=== PATIENT | male | born 1980 | race African-American/Black ===

== ENCOUNTER 2025-03-23 00:08 | Emergency (ER) | payer MEDICAID, OTHER ==
[~2025-03-23] VITALS: Ht 190.5 cm; Wt 102.0 kg
--- NOTE | 2025-03-23 00:28 | ED.PDOC ---
History of Present Illness HPI Comments 44-year-old male came to ER due to back pains. Patient has been complaining of lower back pains for the past 4 days, describe a spasms, worse with sudden movements or bending over. 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 Chief Complaint: Back Pains Time Seen by MD: 00:28 Primary Care Provider: DENIES Reviewed Notes: Nurses Notes Allergies: Coded Allergies: Aspirin (Unverified Allergy, Unknown, 05/06/16) Home Meds Active Scripts Cyclobenzaprine Hcl (CYCLOBENZAPRINE HCL) 7.5 Mg Tab, 7.5 MG PO Q6HP PRN, #30 TAB Prov:SANTA CLARK MD 03/23/25 Gabapentin (Once-Daily) (Gabapentin) 300 Mg Tab, 300 MG PO Q6HP PRN, #60 TAB Prov:SANTA CLARK MD 03/23/25 Albuterol Sulfate (Albuterol Sulfate Hfa) 108 Mcg/Act Aer, 108 MCG IN Q6HP PRN, #1 AER 5 Refills Prov:SANTA CLARK MD 03/23/25 Information Source: Patient Mode of Arrival: EMS Severity: Moderate Timing: Hours Duration: Since onset Prehospital treatment: None Past Medical History PAST MEDICAL HISTORY: Asthma Surgical History (Other): Left hip surgery Family History Family History: Reviewed,noncontributory to illness Social History Smoker: Cigarettes Alcohol: Occasionally Drugs: Marijuana Lives In: Home Constitutional: denies: chills, diaphoresis, fatigue, fever, malaise, sweats, weakness, others EENTM: denies: blurred vision, double vision, ear bleeding, ear discharge, ear drainage, ear pain, ear ringing, eye pain, eye redness, hearing loss, mouth pain, mouth swelling, nasal discharge, nose bleeding, nose congestion, nose pain, photophobia, tearing, throat pain, throat swelling, voice changes, others Respiratory: denies: cough, hemoptysis, orthopnea, SOB at rest, shortness of breath, SOB with excertion, stridor, wheezing, others Cardiovascular: denies: chest pain, dizzy spells, diaphoresis, Dyspnea on exert ion, edema, irregular heart beat, left arm pain, lightheadedness, palpitations, PND, syncope, others Gastrointestinal: denies: abdomen distended, abdominal pain, blood streaked bowels, constipated, diarrhea, dysphagia, difficulty swallowing, hematemesis, melena, nausea, poor appetite, poor fluid intake, rectal bleeding, rectal pain, vomiting, others Genitourinary: denies: burning, dysuria, flank pain, frequency, hematuria, incontinence, penile discharge, penile sore, pain, testicle pain, testicle swelling, urgency, others Neurological: denies: dizziness, fainting, headache, left sided numbness, left sided weakness, numbness, paresthesia, pre-existing deficit, right sided numbness, right sided weakness, seizure, speech problems, tingling, tremors, weakness, others Musculoskeletal: reports: back pain; denies: gout, joint pain, joint swelling, muscle pain, muscle stiffness, neck pain, others Integumetry: denies: bruises, change in color, change in hair/nails, dryness, laceration, lesions, lumps, rash, wounds, others Allergic/Immunocompromised: denies: Difficulty Healing, Frequent Infections, Hives, Itching, others Hematologic/Lymphatic: denies: anemia, blood clots, easy bleeding, easy bruising, swollen glands, others Endocrine: denies: excessive hunger, excessive sweating, excessive thirst, excessive urination, flushing, intolerance to cold, intolerance to heat, unexplained weight gain, unexplained weight loss, others Psychiatric: denies: anxiety, bipolar disorder, depression, hopeless, panic disorder, schizophrenia, sleepless, suicidal, others Physical Exam General Appearance: No Apparent Distress, Normal HEENT: Normal ENT Inspection, Pharynx Normal, TMs Normal Neck: Full Range of Motion, Non-Tender, Normal, Normal Inspection Respiratory: Chest Non-Tender, Lungs Clear, No Accessory Muscle Use, No Respiratory Distress, Normal Breath Sounds Cardiovascular: No Edema, No JVD, No Murmur, No Gallop, Normal Peripheral Pulses, Regular Rate/Rhythm Breast Exam: Deferred Gastrointestinal: No Organomegaly, Non Tender, No Pulsatile Mass, Normal Bowel Sounds, Soft Genitalia: Deferred Pelvic: Deferred Rectal: Deferred Extremities: No calf tenderness, Normal capillary refill, Normal inspection, Normal range of motion, Non-tender, No pedal edema Musculoskeletal : Apperance: Normal 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 Was a procedure done?: No Differential Dx Considerations may include: Musculoskeletal pain, lumbosacral strain, degenerative joint disease X-Ray, Labs, Meds, VS Vital Signs Date Time Temp Pulse Resp B/P (MAP) Pulse Ox O2 Delivery O2 Flow Rate FiO2 03/23/25 05:28 75 11 167/98 03/23/25 04:04 18 95 Room Air* 0 21 03/23/25 03:01 81 15 157/85 (109) 94 03/23/25 01:41 83 14 145/85 03/23/25 01:11 90 16 158/95 03/23/25 01:00 97.8 90 16 158/95 (116) 94 97.8 03/23/25 01:00 90 16 94 Room Air* 0 21 03/23/25 00:20 98.4 84 16 156/105 (122) 96 98.4 Current Medications Medications (Trade) Dose Ordered Sig/Denise Route Start Time Stop Time Status Last Admin Hydromorphone HCl (Dilaudid Injection) 1 mg ONCE ONCE IM 03/23/25 00:30 03/23/25 00:31 DC 03/23/25 01:11 Ondansetron HCl (Zofran Po) 8 mg ONCE ONCE PO 03/23/25 00:30 03/23/25 00:31 DC 03/23/25 01:11 Albuterol (Ventolin Medneb) 2.5 mg ONCE ONCE NEB 03/23/25 04:00 03/23/25 04:01 DC 03/23/25 04:03 Ipratropium [place] (Atrovent Medneb) 0.5 mg ONCE ONCE NEB 03/23/25 04:00 03/23/25 04:01 DC 03/23/25 04:04 Ketorolac Tromethamine (Toradol Injection) 30 mg ONCE ONCE IM 03/23/25 04:00 03/23/25 04:01 DC 03/23/25 03:54 Hydromorphone HCl (Dilaudid Injection) 1 mg ONCE ONCE IM 03/23/25 05:30 03/23/25 05:31 DC 03/23/25 05:28 Examination: LS2CT CLINICAL INDICATION: low back pain COMPARISON: None. CONTRAST USED: None. TECHNIQUE: Axial sections through the lumbar spine with sagittal and coronal reformats are obtained without contrast. Multiplanar reconstructions were obtained. CT scan done according to ALARA (As Low As Reasonably Achievable). FINDINGS: The alignment of the lumbosacral spine is maintained. Degenerative changes are seen in the form of multilevel marginal osteophytes. The vertebral bodies and posterior elements are unremarkable. There is no fracture or subluxation. No destructive bony lesion is noted. The pre- and para-vertebral soft tissues are unremarkable. The sacroiliac joints are unremarkable to the extent visualized. The abdominal organs to the extent visualized are unremarkable. T12-L1: Disc height is reduced. There is no significant disc herniation, central canal or neural foraminal narrowing. The facet joints and ligamentum fl avum are within normal limits. L1-L2: Disc height is reduced with vacuum phenomenon. Diffuse disc bulge is seen measuring 4 mm indenting on the ventral thecal sac. There is no significant central canal or neural foraminal narrowing. The facet joints and ligamentum flavum are within normal limits. L2-L3: Disc height is within normal limits. There is no significant disc herniation, central canal or neural foraminal narrowing. The facet joints and ligamentum flavum are within normal limits. L3-L4: Disc height is within normal limits. There is no significant disc herniation, central canal or neural foraminal narrowing. The facet joints and ligamentum flavum are within normal limits. L4-L5: Disc height is within normal limits. There is no significant disc herniation, central canal or neural foraminal narrowing. The facet joints and ligamentum flavum are within normal limits. L5-S1: Disc height is within normal limits. There is no significant disc herniation, central canal or neural foraminal narrowing. The facet joints and ligamentum flavum are within normal limits. IMPRESSION: 1. Degenerative changes in the lumbar spine as described above. 2. No acute fracture or dislocation. Time of 1ST Reevaluation: 00:23 Reevaluation 1ST: Unchanged Patient Education/Counseling: Diagnosis, Treatment Family Education/Counseling: No Family Present Departure 1 Departure Time of Disposition: 02:00 Impression: Primary Impression: DJD (degenerative joint disease), lumbosacral Additional Impressions: Right sided sciatica Asthma Disposition: HOME / SELF CARE / HOMELESS Condition: Stable e-Prescriptions Cyclobenzaprine Hcl (CYCLOBENZAPRINE HCL) 7.5 Mg Tab 7.5 MG PO Q6HP PRN, #30 TAB Prov: SANTA CLARK MD 03/23/25 Gabapentin (Once-Daily) (Gabapentin) 300 Mg Tab 300 MG PO Q6HP PRN, #60 TAB Prov: SANTA CLARK MD 03/23/25 Albuterol Sulfate (Albuterol Sulfate Hfa) 108 Mcg/Act Aer 108 MCG IN Q6HP PRN, #1 AER 5 Refills Prov: SANTA CLARK MD 03/23/25 Discharged With: Self Critical Care Note Critical Care Time?: No Stability Stability form required: No Heart Score Heart Score: Heart Score Response (Comments) Value History N/A 0 EKG N/A 0 Age N/A 0 Risk Factors N/A 0 Troponin N/A 0 Total 0 I personally scribed for SANTA CLARK MD ([email or web address]) on 03/23/25 at 00:28. Electronically submitted by Dylan Cerrato ([email or web address]). I personally scribed for SANTA CLARK MD ([email or web address]) on 03/23/25 at 05:00. Electronically submitted by Dylan Cerrato ([email or web address]). SANTA CLARK MD March 23, 2025 00:28
[2025-03-23 01:00] VITALS: PULSE 90; RESP 16; TEMP 97.8; O2SAT 94
[2025-03-23] MEDS: HYDROmorphone HCL 2 MG/ML VL/or syr IM ONE ×2 (01:11→05:28)
[2025-03-23] MEDS: ONDANSETRON ODT 4 MG TAB PO ONE (01:11)
[2025-03-23] MEDS: KETOROLAC TROMETH 30 MG/ML 1ML VIAL IM ONE (03:54)
[2025-03-23] MEDS: ALBUTEROL SULF 2.5 MG/0.5ML(0.5%) NEB SOLN NEB ONE (04:03)
[2025-03-23 04:04] VITALS: O2SAT 95
[2025-03-23] MEDS: IPRATROPIUM BROM 0.5 MG/2.5ML INH SOL NEB ONE (04:04)
--- NOTE | 2025-03-23 04:52 | DVH ---
Examination: LS2CT CLINICAL INDICATION: low back pain COMPARISON: None. CONTRAST USED: None. TECHNIQUE: Axial sections through the lumbar spine with sagittal and coronal reformats are obtained without contrast. Multiplanar reconstructions were obtained. CT scan done according to ALARA (As Low As Reasonably Achievable). FINDINGS: The alignment of the lumbosacral spine is maintained. Degenerative changes are seen in the form of mu ltilevel marginal osteophytes. The vertebral bodies and posterior elements are unremarkable. There is no fracture or subluxation. No destructive bony lesion is noted. The pre- and para-vertebral soft ti ssues are unremarkable. The sacroiliac joints are unremarkable to the extent visualized. The abdomina l organs to the extent visualized are unremarkable. T12-L1: Disc height is reduced. There is no significant disc herniation, central canal or neural fo raminal narrowing. The facet joints and ligamentum flavum are within normal limits. L1-L2: Disc height is reduced with vacuum phenomenon. Diffuse disc bulge is seen measuring 4 mm inde nting on the ventral thecal sac. There is no significant central canal or neural foraminal narrowing. The facet joints and ligamentum flavum are within normal limits. L2-L3: Disc height is within normal limits. There is no significant disc herniation, central canal o r neural foraminal narrowing. The facet joints and ligamentum flavum are within normal limits. L3-L4: Disc height is within normal limits. There is no significant disc herniation, central canal o r neural foraminal narrowing. The facet joints and ligamentum flavum are within normal limits. L4-L5: Disc height is within normal limits. There is no significant disc herniation, central canal o r neural foraminal narrowing. The facet joints and ligamentum flavum are within normal limits. L5-S1: Disc height is within normal limits. There is no significant disc herniation, central canal o r neural foraminal narrowing. The facet joints and ligamentum flavum are within normal limits. IMPRESSION: 1. Degenerative changes in the lumbar spine as described above. 2. No acute fracture or dislocation. Electronically Signed 03/23/2025 04:51 Rodney Britton
[2025-03-23] MEDS ORDERED: ALBU108A5 IN (05:19)
[2025-03-23] MEDS ORDERED: GABA300T4 PO (05:19)
[2025-03-23] MEDS ORDERED: CYCL-838 PO (05:19)
[2025-03-23 05:28] VITALS: BP 167/98; PULSE 75; RESP 11
== END 2025-03-23 05:53 | disposition home or self-care (01) ==
LOC: EDBD 00:08 → ER 00:08
DX: M47.817 Spondylosis without myelopathy or radiculopathy, lumbosacral region (principal); M54.41 Lumbago with sciatica, right side; J45.909 Unspecified asthma, uncomplicated; F17.210 Nicotine dependence, cigarettes, uncomplicated; F10.90 Alcohol use, unspecified, uncomplicated; Y90.9 Presence of alcohol in blood, level not specified; F19.90 Other psychoactive substance use, unspecified, uncomplicated; Z98.890 Other specified postprocedural states; Z87.09 Personal history of other diseases of the respiratory system; Z79.899 Other long term (current) drug therapy; Z88.8 Allergy status to other drugs, medicaments and biological substances
CPT/HCPCS: 72131; 94640; 96372; 99285; J1171; J1885; Q0162

== ENCOUNTER 2025-11-02 23:11 | Emergency (ER) | payer OTHER ==
[~2025-11-02] VITALS: Ht 190.5 cm; Wt 109.0 kg
[~2025-11-02 23:11] MED LIST: ALBU108A5 IN; CYCL-838 PO; GABA300T4 PO
[2025-11-03 00:24] LABS: Mean Corpuscular Volume 69.6 fL (80.0-100.0)
[2025-11-03 00:26] LABS: Hematocrit 40.0 % (41.0-53.0); Hemoglobin 12.8 g/dL (13.5-17.5); Mean Corpuscular Hemoglobin 22.2 pg (28.0-32.0); Nucleated Red Blood Cells % 0.1 %
--- NOTE | 2025-11-03 00:34 | ED.PDOC ---
History of Present Illness HPI Comments 45-year-old male came to ER due to back pains. Patient has been complaining of lower back pains for the past 2 days after bending over to pick something up, describe a spasms, worse with sudden movements or bending over. 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 Chief Complaint: Back Pain Time Seen by MD: 00:33 Primary Care Provider: DENIES Reviewed Notes: Nurses Notes Allergies: Coded Allergies: Aspirin (Unverified Allergy, Unknown, 05/06/16) Home Meds Active Scripts Lidocaine (Lidocaine Topical Pain Pa) 4 % Pad, 4 % EX DAILY PRN, #30 PAD Prov:SANTA CLARK MD 11/03/25 Cyclobenzaprine Hcl (CYCLOBENZAPRINE HCL) 7.5 Mg Tab, 7.5 MG PO Q6HP PRN, #30 TAB Prov:SANTA CLARK MD 11/03/25 Gabapentin (Once-Daily) (Gabapentin) 300 Mg Tab, 300 MG PO Q6HP PRN, #90 TAB Prov:SANTA CLARK MD 11/03/25 Cyclobenzaprine Hcl (CYCLOBENZAPRINE HCL) 7.5 Mg Tab, 7.5 MG PO Q6HP PRN, #30 TAB Prov:SANTA CLARK MD 03/23/25 Gabapentin (Once-Daily) (Gabapentin) 300 Mg Tab, 300 MG PO Q6HP PRN, #60 TAB Prov:SANTA CLARK MD 03/23/25 Albuterol Sulfate (Albuterol Sulfate Hfa) 108 Mcg/Act Aer, 108 MCG IN Q6HP PRN, #1 AER 5 Refills Prov:SANTA CLARK MD 03/23/25 Information Source: Patient Mode of Arrival: EMS Past Medical History PAST MEDICAL HISTORY: Asthma Family History Family History: Reviewed,noncontributory to illness Social History Smoker: Cigarettes Alcohol: Occasionally Drugs: Marijuana Lives In: Home Constitutional: denies: chills, diaphoresis, fatigue, fever, malaise, sweats, weakness, others EENTM: denies: blurred vision, double vision, ear bleeding, ear discharge, ear drainage, ear pain, ear ringing, eye pain, eye redness, hearing loss, mouth pain, mouth swelling, nasal discharge, nose bleeding, nose congestion, nose pain, photophobia, tearing, throat pain, throat swelling, voice changes, others Respiratory: denies: cough, hemoptysis, orthopnea, SOB at rest, shortness of breath, SOB with excertion, stridor, wheezing, others Cardiovascular: denies: chest pain, dizzy spells, diaphoresis, Dyspnea on exertion, edema, irregular heart beat, left arm pain, lightheadedness, palpitations, PND, syncope, others Gastrointestinal: denies: abdomen distended, abdominal pain, blood streaked bowels, constipated, diarrhea, dysphagia, difficulty swallowing, hematemesis, melena, nausea, poor appetite, poor fluid intake, rectal bleeding, rectal pain, vomiting, others Genitourinary: denies: burning, dysuria, flank pain, frequency, hematuria, incontinence, penile discharge, penile sore, pain, testicle pain, testicle swelling, urgency, others Neurological: denies: dizziness, fainting, headache, left sided numbness, left sided weakness, numbness, paresthesia, pre-existing deficit, right sided numbness, right sided weakness, seizure, speech problems, tingling, tremors, weakness, others Musculoskeletal: reports: back pain; denies: gout, joint pain, joint swelling, muscle pain, muscle stiffness, neck pain, others Integumetry: denies: bruises, change in color, change in hair/nails, dryness, laceration, lesions, lumps, rash, wounds, others Allergic/Immunocompromised: denies: Difficulty Healing, Frequent Infections, Hives, Itching, others Hematologic/Lymphatic: denies: anemia, blood clots, easy bleeding, easy bruising, swollen glands, others Endocrine: denies: excessive hunger, excessive sweating, excessive thirst, excessive urination, flushing, intolerance to cold, intolerance to heat, unexplained weight gain, unexplained weight loss, others Psychiatric: denies: anxiety, bipolar disorder, depression, hopeless, panic disorder, schizophrenia, sleepless, suicidal, others Physical Exam General Appearance: No Apparent Distress, Normal HEENT: Normal ENT Inspection, Pharynx Normal, TMs Normal Neck: Full Range of Motion, Non-Tender, Normal, Normal Inspection Respiratory: Chest Non-Tender, Lungs Clear, No Accessory Muscle Use, No Respiratory Distress, Normal Breath Sounds Cardiovascular: No Edema, No JVD, No Murmur, No Gallop, Normal Peripheral Pulses, Regular Rate/Rhythm Breast Exam: Deferred Gastrointestinal: No Organomegaly, Non Tender, No Pulsatile Mass, Normal Bowel Sounds, Soft Genitalia: Deferred Pelvic: Deferred Rectal: Deferred Extremities: No calf tenderness, Normal capillary refill, Normal inspection, Normal range of motion, Non-tender, No pedal edema Musculoskeletal : Apperance: Normal Neurologic: Alert, 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 Was a procedure done?: No Differential Dx Considerations may include: Lumbosacral strain, musculoskeletal pain, low back pain, degenerative joint disease X-Ray, Labs, Meds, VS Vital Signs Date Time Temp Pulse Resp B/P (MAP) Pulse Ox O2 Delivery O2 Flow Rate FiO2 11/03/25 05:30 97.7 75 16 155/86 (109) 95 97.7 11/03/25 02:25 97.4 73 19 173/93 (119) 95 97.4 11/03/25 01:13 81 20 157/98 11/03/25 00:40 98.1 81 20 157/98 (117) 99 98.1 11/03/25 00:40 81 20 99 Room Air 11/02/25 23:14 97.9 99 16 153/80 78 97.9 Lab Test 11/03/25 00:05 Range/Units White Blood Count 12.4 H 4.4-10.8 10^3/uL Red Blood Count 5.75 4.5-5.90 10^6/uL Hemoglobin 12.8 L 13.5-17.5 g/dL Hematocrit 40.0 L 41.0-53.0 % Mean Corpuscular Volume 69.6 L 80.0-100.0 fL Mean Corpuscular Hemoglobin 22.2 L 28.0-32.0 pg Mean Corpuscular Hemoglobin Concent 31.9 L 32.0-36.0 g/dL Red Cell Distribution Width 15.8 H 11.8-14.3 % Platelet Count 325 140-450 10^3/uL Mean Platelet Volume 6.9 6.9-10.8 fL Neutrophils (%) (Auto) 67.2 37.0-80.0 % Lymphocytes (%) (Auto) 22.3 10.0-50.0 % Monocytes (%) (Auto) 7.8 0.0-12.0 % Eosinophils (%) (Auto) 2.1 0.0-7.0 % Basophils (%) (Auto) 0.6 0.0-2.0 % Neutrophils # (Auto) 8.3 1.6-8.6 10 ^3/uL Lymphocytes # (Auto) 2.8 0.4-5.4 10 ^3/uL Monocytes # (Auto) 1.0 0-1.3 10 ^3/uL Eosinophils # (Auto) 0.3 0-0.8 10 ^3/uL Basophils # (Auto) 0.1 0-0.2 10 ^3/uL Nucleated Red Blood Cells 0.1 % Sodium Level 138 136-145 mmol/L Potassium Level 3.4 L 3.5-5.1 mmol/L Chloride Level 107 98-107 mmol/L Carbon Dioxide Level 20 20-31 mmol/L Anion Gap 11 5-15 Blood Urea Nitrogen 9 9-23 mg/dL Creatinine 0.70 0.700-1.30 mg/dL Glomerular Filtration Rate Calc 114 >90 mL/min BUN/Creatinine Ratio 12.9 10.0-20.0 Serum Glucose 110 H 74-106 mg/dL Calcium Level 9.0 8.7-10.4 mg/dL Total Bilirubin 0.6 0.2-1.0 mg/dL Aspartate Amino Transferase (AST) 20 13-40 U/L Alanine Aminotransferase (ALT) 18 7-40 U/L Alkaline Phosphatase 79 46-116 U/L Total Protein 7.2 5.7-8.2 g/dL Albumin 4.1 3.2-4.8 g/dL Lipase 26 12-53 U/L Current Medications Medications (Trade) Dose Ordered Sig/Denise Route Start Time Stop Time Status Last Admin Hydromorphone HCl (Dilaudid Injection) 1 mg ONCE ONCE IV 11/03/25 00:00 11/03/25 00:01 DC 11/03/25 01:13 Ondansetron HCl (Zofran) 4 mg ONCE ONCE IV 11/03/25 00:00 11/03/25 00:01 DC 11/03/25 01:13 Sodium Chloride 1,000 ml @ 1,000 mls/hr Q1H ONCE IV 11/03/25 00:30 11/03/25 01:29 DC 11/03/25 01:46 Ondansetron HCl (Zofran) 4 mg ONCE ONCE IV 11/03/25 02:45 11/03/25 02:46 DC 11/03/25 05:37 Time of 1ST Reevaluation: 00:33 Reevaluation 1ST: Unchanged Patient Education/Counseling: Diagnosis, Treatment Family Education/Counseling: No Family Present SEPSIS Sepsis Screen Date sepsis recognized/suspect: Nov 02, 2025 Time Sepsis recognized/suspect: 2313 Recent Procedure: No On Antibiotic Therapy: No Respiratory Rate >20: No Heart Rate >90: No Temp<36 C (96.8 F) or >38.3 C: No SBP <90 or MAP <65 mmHG: No New Acute Mental Status Change: No Is the patient on CPAP, BIPAP,: No Physician Orders Urinalysis (11/02/25 23:55) Ct Ab Pel With Iv Con Only (11/02/25 23:55) Hydromorphone Hcl Inj (Dilaudid Injectio (11/03/25 05:45) Vital Signs Date Time Temp Pulse Resp B/P (MAP) Pulse Ox O2 Delivery O2 Flow Rate FiO2 11/03/25 05:30 97.7 75 16 155/86 (109) 95 97.7 11/03/25 02:25 97.4 73 19 173/93 (119) 95 97.4 11/03/25 01:13 81 20 157/98 11/03/25 00:40 98.1 81 20 157/98 (117) 99 98.1 11/03/25 00:40 81 20 99 Room Air 11/02/25 23:14 97.9 99 16 153/80 78 97.9 Laboratory Tests Test 11/03/25 00:05 White Blood Count 12.4 10^3/uL (4.4-10.8) H Medications Medications Dose Ordered Sig/Denise Route Start Time Stop Time Status Last Admin Dose Admin Hydromorphone HCl 1 mg ONCE ONCE IV 11/03/25 00:00 11/03/25 00:01 DC 11/03/25 01:13 Ondansetron HCl 4 mg ONCE ONCE IV 11/03/25 00:00 11/03/25 00:01 DC 11/03/25 01:13 Ondansetron HCl 4 mg ONCE ONCE IV 11/03/25 02:45 11/03/25 02:46 DC 11/03/25 05:37 Sodium Chloride 1,000 ml @ 1,000 mls/hr Q1H ONCE IV 11/03/25 00:30 11/03/25 01:29 DC 11/03/25 01:46 Departure 1 Departure Time of Disposition: 02:30 Impression: Primary Impression: Lumbar radiculopathy Disposition: HOME / SELF CARE / HOMELESS Condition: Stable e-Prescriptions Lidocaine (Lidocaine Topical Pain Pa) 4 % Pad 4 % EX DAILY PRN, #30 PAD Prov: SANTA CLARK MD 11/03/25 Cyclobenzaprine Hcl (CYCLOBENZAPRINE HCL) 7.5 Mg Tab 7.5 MG PO Q6HP PRN, #30 TAB Prov: SANTA CLARK MD 11/03/25 Gabapentin (Once-Daily) (Gabapentin) 300 Mg Tab 300 MG PO Q6HP PRN, #90 TAB Prov: SANTA CLARK MD 11/03/25 Discharged With: Self Critical Care Note Critical Care Time?: No Stability Stability form required: No Heart Score Heart Score: Heart Score Response (Comments) Value History N/A 0 EKG N/A 0 Age N/A 0 Risk Factors N/A 0 Troponin N/A 0 Total 0 I personally scribed for SANTA CLARK MD ([email or web address]) on 11/03/25 at 00:34. Electronically submitted by Dylan Cerrato ([facility] SANTA CLARK MD Nov 03, 2025 00:34
[2025-11-03 00:53] LABS: Alanine Aminotransferase 18 U/L (7-40); Albumin 4.1 g/dL (3.2-4.8); Alkaline Phosphatase 79 U/L (46-116); Anion Gap 11 (5-15); BUN/Creatinine Ratio 12.9 (10.0-20.0); Bilirubin, Total 0.6 mg/dL (0.2-1.0); Calcium 9.0 mg/dL (8.7-10.4); Chloride 107 mmol/L (98-107); Lipase 26 U/L (12-53); Sodium 138 mmol/L (136-145); Total Protein 7.2 g/dL (5.7-8.2)
[2025-11-03 00:54] LABS: Blood Urea Nitrogen 9 mg/dL (9-23); Carbon Dioxide 20 mmol/L (20-31); Glucose 110 mg/dL (74-106); Potassium 3.4 mmol/L (3.5-5.1)
[2025-11-03] MEDS: HYDROmorphone HCL 2 MG/ML VL/or syr IV ONE ×2 (01:13→02:45)
[2025-11-03] MEDS: ONDANSETRON HCL 4 MG/2 ML VIAL IV ONE ×2 (01:13→05:37)
[2025-11-03] MEDS: SODIUM CHLORIDE 0.9% 1,000 ML IV ONE (01:46)
[2025-11-03] MEDS: IOHEXOL 300 MG/ML 100ML BOTTLE IJ ONE (01:47)
--- NOTE | 2025-11-03 04:42 | DVH ---
EXAM: CT CT AB PEL WITH IV CON ONLY History: back pain Comparison Study: None TECHNIQUE: Multidetector CT of the abdomen was performed from lung bases to pubic symphysis. Imaging was performed without IV contrast. Axial, coronal and sagittal multiplanar reformats were obtained from the axial data set by the technologist. Radiation Dose Information: Dose-length product is 1668.46 mGy*cm FINDINGS: Limited sections of the lung bases demonstrate no focal pulmonary mass. The liver, spleen, pancreas, and both adrenal glands demonstrate no acute findings. Hepatomegaly to 20.7 cm. The gallbladder is unremarkable. The stomach is unremarkable. The small bowel loops are not dilated. The appendix is normal. No colonic obstruction. Bilateral kidneys are unremarkable. No hydronephrosis. The urinary bladder is partially distended. No significant lymphadenopathy. No free air or free fluid. The aorta and IVC demonstrate no acute findings. Mild atherosclerosis of the abdominal vasculature. Visualized osseous structures demonstrate no acute abnormality. IMPRESSION: 1. Limited evaluation in the absence of IV contrast. 2. No acute intra-abdominal process. 3. If there is continued concern for abdominal infection or pathology, CT with IV contrast is recommended.
[2025-11-03] MEDS ORDERED: LIDO4PAD52 EX (04:54)
[2025-11-03 05:30] VITALS: TEMP 97.7; O2SAT 95
[2025-11-03] MEDS: ONDANSETRON HCL 4 MG/2 ML VIAL ONE (05:36)
[2025-11-03] MEDS: HYDROMORPHONE HCL 1 MG/ML INJ ONE (05:40)
[2025-11-03 05:45] VITALS: BP 155/86; PULSE 75; RESP 16
[2025-11-03] MEDS ORDERED: HYDROmorphone HCL 2 MG/ML VL/or syr IV ONE (05:45)
[2025-11-03] MEDS: HYDROMORPHONE HCL 1 MG/ML INJ IV ONE (05:45)
[2025-11-03] MEDS ORDERED: TIZA6CAP PO (19:05)
== END 2025-11-03 06:00 | disposition home or self-care (01) ==
LOC: ER 23:11 → EDBD 23:11 → ER 11-03 06:00
DX: M54.16 Radiculopathy, lumbar region (principal); F17.210 Nicotine dependence, cigarettes, uncomplicated; J45.909 Unspecified asthma, uncomplicated; Z88.6 Allergy status to analgesic agent
CPT/HCPCS: 36415; 74177; 80053; 83690; 85025; 96361; 96374; 96375; 96376; 99285; J1171; J2405; J7030; Q9967